=== PATIENT | female | born 1975 | race Caucasian/White ===

== ENCOUNTER 2016-11-11 20:59 | Inpatient (IN) ==
--- NOTE | 2016-11-11 21:06 | OB/GYN History & Physical ---
Date of Encounter: 11/12/16 Time of Encounter: 21:06 Assessment and Plan (1) 35 weeks gestation of Current visit: Yes Status: Acute Pt received appropriate care with Dr. Zheng Positive Nitrazine test x2 performed by RN. Cervical exam: 1-2 cm and thick, per RN Anticipate vaginal delivery Plan for cytotec/pagan when deemed appropriate Epidural if requested. Will notify nursery Plan for Rhogam, per protocol Discuss with ZEYAD Hernandez (2) GBS screening not performed Current visit: Yes Status: Acute Pt presenting prior to 37 weeks gestation with SROM Plan for GBS prophylaxis per protocol (3) Non-stress test reactive on surveillance Current visit: Yes Status: Acute Baseline 135 bpm/ moderate/ +accels/-decels Contractions: Irritability (4) labor in third trimester Current visit: Yes Status: Acute Pt presented with SROM Nursery notified Qualifiers: labor delivery status: with delivery in third trimester Fetus number: single or unspecified fetus Qualified Code(s): O60.14X0 - labor third trimester with delivery third trimester, not applicable or unspecified (5) Advanced maternal age (AMA), 40 years or greater Current visit: Yes Status: Acute Pt declined chromosomal screening. History of Present Illness Chief complaint: Labor Evaluation HPI: Ms. Mason is a 40 year old female presenting at 35 weeks and 0 days for spontaneous rupture of membrane.Pt denies vaginal bleeding or contractions. Endorses active movement. She receives routine care with Dr. Zheng as an outpatient. Patient's has been complicated by gestational diabetes, controlled with glyburide and dietary modifications. Pt had anatomy U/ S indicating a choroid plexus cyst, with no follow up with MFM despite recommendation. ROS: Constitutional - Glucose levels WNL prior to admission today. No headache. No SOB, N/V. No chest pain. Labs: O NEG/ Rubella Immune/ Varicella Antibody POS/ HIV NR/ T Pallidum Neg Past Med Surg Social Fam HX - Family History Mother Adopted: No Living Status: Still Living Hx Family Cardiac Disorders: No Hx Family Respiratory Disorders: No Hx Family Cancer: No Hx Family GI Disorders: No Hx Family Endocrine Disorder: Yes (diabetic) Hx Family Musculoskeletal Disorders: No Hx Family Neuromuscular Disorders: No Hx Family Neurologic Disorders: No Hx Family HEENT Disorders: No Hx Family Autoimmune Disorders: No Hx Family Reproductive Disorders: No Hx Family Psychosocial Disorders: No Hx Family Medical Disorders: No Obstetrical History - Pregnancies : 6 Para: 5 Term: 5 : 0 Ab's: 0 Livin - History/Complications History/Complications: Previous pregnancies complicated with gestational diabetes Previous births were vaginal deliveries. No history of required vacuum or forceps-assisted delivery. No previous hemorrhages. Medications and Allergies Famotidine [Pepcid] 20 mg PO 11/11/16 [History] Famotidine [Pepcid] 40 mg PO QPM 11/11/16 [History] GlyBURIDE 11/11/16 [History] Tablet PO DAILY 11/11/16 [History] Allergies No Known Allergies Allergy (Verified 11/11/16 21:19) Review of System OB - Constitutional Constitutional ROS IM: as per HPI Exam - Constitutional Constitutional: well developed, well nourished, no acute distress - HEENT HEENT: EOMI, Normocephaly - Neck Neck exam: supple - Lungs Respiratory exam: CTAB (No accessory muscle use. No chest wawll tenderness.) - Cardiovascular Cardiovascular exam: RRR (No murmur. ) - Abdomen Abdomen: Present: gravid, non tender - Cervix Dilation: 1 (1-2 cm, performed by RN) Effacement: 0 Results Result Diagrams: 11/11/16 21:25 All other labs normal.
[2016-11-11] MEDS ORDERED: Metoclopramide 10 MG/2 ML VIAL IVP PRN (21:17)
[2016-11-11] MEDS ORDERED: Ondansetron 4 MG/2 ML VIAL IVP PRN (21:17)
[2016-11-11] MEDS ORDERED: Naloxone 0.4 MG/ML INJ IVP PRN (21:17)
[2016-11-11] MEDS ORDERED: Famotidine 20 MG/2 ML VIAL IVP PRN (21:17)
[2016-11-11] MEDS ORDERED: Penicillin G Potassium 5,000,000 UNIT in D5% in Water (Mini-Bag+) 100 ML IVPB ONE (21:20)
[2016-11-11] MEDS ORDERED: Ringers Solution, Lactated 1,000 ML IVC SCH (21:30)
[2016-11-11 21:34] LABS: Basophils % 0.3 %; Eosinophils # 0.1 K/mcL (0.0-0.6); Eosinophils % 0.8 %; Hematocrit 31.8 % (35.3-44.9); Hemoglobin 10.1 g/dL (11.5-15.4); Lymphocytes # 2.8 K/mcL (0.6-4.6); Lymphocytes % 26.8 %; Mean Corpuscular HGB Conc 31.8 g/dL (31.6-35.5); Mean Corpuscular Hemoglobin 26.4 pg (28.0-33.3); Mean Platelet Volume 10.7 fL (9.4-12.4); Monocytes # 0.8 K/mcL (0.0-1.3); Monocytes % 8.1 %; Neutrophils # 6.6 K/mcL (1.6-8.9); Platelet Count 227 K/mcL (140-400); Red Blood Count 3.83 M/mcL (3.82-4.97); Red Cell Distribution Width 14.2 % (11.5-14.5)
[2016-11-11] MEDS ORDERED: miSOPROStol 25 MCG TABLET PO ONE ×2 (22:15→22:45)
--- NOTE | 2016-11-11 23:41 | OB Labor Progress Note ---
Date of Encounter: 11/12/16 Time of Encounter: 23:39 Labor Progress Note - Subjective Subjective: Pt comfortable. Has no complaints. Requests use of peanut ball - Vital Signs Vital Signs: Vital Signs WNL - Cervix Cervix: Dilation: 2 cm Effacement: 70% Cephalic presentation noted on exam, feels like possible brow presentation Performed by OG HernandezN - Heart Tones Heart Tones: Category I - Point Roberts Point Roberts: Irritability - Interventions Interventions: Pt on cytotec, tolerating well - Plan Plan: Continue close monitoring for adequate contractions. Will consider Pitocin when appropriate. RN to perform SVE prior to pitocin, if concern for malpresentation including brow, RN to call MD for evaluation prior to starting pitocin
[2016-11-12] MEDS: Penicillin G Potassium 2,500,000 UNIT in D5% in Water 100 ML IVPB SCH ×3 (02:01→10:31)
[2016-11-12] MEDS ORDERED: Oxytocin 20 units/ LR 1000 mL 20 UNIT/1,000 ML BAG IVC SCH ×2 (03:00→16:59)
--- NOTE | 2016-11-12 05:54 | OB Labor Progress Note ---
Date of Encounter: 11/12/16 Time of Encounter: 05:50 Labor Progress Note - Subjective Subjective: patient doing well - Vital Signs Vital Signs: VSS - Cervix Cervix: 3/70-2 - Heart Tones Heart Tones: 125/mod tona/ +accels, no decels - Plan Plan: ok for epidural when desired, fingersticks every 2 hrs and every 1hr when in active labor, anticipate
[2016-11-12] MEDS ORDERED: Epidural Premix (fent/bupiv) 110 ML EP ONE (08:51)
[2016-11-12] MEDS ORDERED: Bupivacaine-MPF 0.25% 10 ML VIAL ONE (08:51)
[2016-11-12] MEDS ORDERED: *HR* FentaNYL (PF) 100 MCG/2 ML VIAL ONE (08:51)
--- NOTE | 2016-11-12 09:56 | Anesthesia Evaluation PreOp ---
Date of Encounter: 11/12/16 Time of Encounter: 09:04 - Past History Planned Operation: AYDE Cardiac History: Denies any Significant Hx Pulmonary History: Denies Any Significant HX NOVELTY MAKER History: Denies Any Significant HX Other Medical History: Denies Any Significant HX Anesthesia History: No Prior Anesthetic Complications (previous AYDE x 5--no complications; denies personal and family h/o GA complications) : Yes Test: Positive Alcohol Use: none Drug use: none Medications and Allergies Famotidine [Pepcid] 20 mg PO 11/11/16 [History] Famotidine [Pepcid] 40 mg PO QPM 11/11/16 [History] GlyBURIDE 11/11/16 [History] Tablet PO DAILY 11/11/16 [History] Allergies No Known Allergies Allergy (Verified 11/11/16 21:19) - Meds/Allergy Pre-op Review Medications Reviewed: Yes Allergies Reviewed: Yes Beta Blockers on Current Med List: No Anesthesia Results - Labs 11/11/16 21:25 Anesthesia Exam 114/78, HR 93, RR 22 Height: 1.65m Weight: 97kg NPO (# of Hours): >8hrs Pain Scale: 10 Pain Scale Used: Numeric (1 - 10) - HEENT Pupil (Motor): Pupils equal Mallampati: II Teeth: Normal Oral Opening: Greater than 3 - NOVELTY MAKER LOC: Oriented NOVELTY MAKER Motor: Normal RUE, Normal LUE, Normal RLE, Normal LLE, Normal Face NOVELTY MAKER Sensory: Normal: RUE, LUE, RLE, LLE, Face - Cardiac Rhythm: Regular Murmur: None - Pulmonary Breath Sounds: bilateral Clear Respiratory Effort: Symmetrical Anesthesia Assess/Plan ASA Score: 2 Modified Mohler Scale for Level of Consciousness: Anixous, agitated or restless Anesthetic Plan: Regional Autologous Blood: No Monitoring Plan: Standard Monitors Recovery Plan: Other
--- NOTE | 2016-11-12 10:00 | Anesthesia Procedures ---
Date of Encounter: 11/12/16 Time of Encounter: 09:57 Procedures: Anesthesia - Epidural/Spinal Patient ID/Chart reviewed: Yes Patient examined: Yes OB Eval: Gestational age: 35 weeks 1 day OB Eval: : 6 OB Eval: Hx Para: 5 OB Eval: Dilated at (cm): 4 OB Eval: Contractions: Non-stressed pattern Consent Obtained: Yes Supplemental Oxygen: None/Room Air Site Prep: Aseptic Technique, Sterile prep and drape, Povidone-Iodine 1% Patient position: upright Local Anesthetic: Lidocaine 1% Amount of Local Anesthetic used: 5 Touhy Needle Gauge: 18 Touhy Needle Depth (cm): 5 Catheter Depth at Skin (cm): 11 Test Dose (1.5% Lido + Epi): Volume given (mls): 5 Test Dose Result: Negative Loading Dose: 0.25% Marcaine (mls): 5 Loading Dose: Fentanyl (mcg): 100 Loading Dose Administered: Thru Catheter Infusion Med: 0.125% Bupivacaine w/ 2 mcg/ml Fentanyl Infusion Rate (mls/hr): 14 (w/ demand bolus of 4mL q20min PRN) Catheter Secured in Place: Tegaderm, Tape Interspace Used: L3-L4 Loss of Resistance (JEO): Yes Blood: No CSF: No Paresthesia: No Procedure: please see Luli CLINTON's electronic documentation for VS
[2016-11-12] MEDS ORDERED: *HR* FentaNYL (PF) 100 MCG/2 ML VIAL EP ONE (10:01)
[2016-11-12] MEDS ORDERED: Bupivacaine-MPF 0.25% 10 ML VIAL EP ONE (10:01)
[2016-11-12] MEDS ORDERED: Epidural Premix (fent/bupiv) 110 ML EP SCH (10:15)
--- NOTE | 2016-11-12 11:54 | OB Labor Progress Note ---
Date of Encounter: 11/12/16 Time of Encounter: 11:52 Labor Progress Note - Subjective Subjective: Pt resting comfortable in with epidural - Cervix Cervix: 4cm per RN - Heart Tones Heart Tones: 135/moderate/+accels/-decels - Braymer Braymer: 3-7 - Plan Plan: Continue Pitocin per policy PCN for GBS Anticipate
[2016-11-12] MEDS: EPHEDrine 50 MG/ML VIAL ONE ×2 (13:21→13:31)
--- NOTE | 2016-11-12 15:40 | OB/GYN Procedure Note ---
Delivery - Delivery Date: 11/12/16 Provider: Laury Valle Intrapartum events: none Delivery induction: misoprostol Delivery augmentation: pitocin Delivery monitor: external FHT, external uterine, internal FHT, internal uterine Anesthesia: epidural Estimated Blood Loss: 400 - (s) A Delivery Date: 11/12/16 Delivery Time: 11:45 Presentation: vertex Position: OA Route of delivery: Gender: Male Viability: Viable at 1 minute: 7 at 5 mins: 8 Shoulder Dystocia: not encountered Specimens collected: cord blood Placenta: spontaneous Cord: 3 umbilical vessels - Repair Episiotomy: none Laceration Description: None - Complications Delivery complications: none Delivery comments: Pt progressed to complete. Single push to of liveborn male. Vertex delivered OA, shoulders easily followed, no nuchal cord or shoulder dystocia encountered. Vigorous infant placed on maternal abdomen. APGARS 7,8. Delayed cord clamping, Placenta delivered spontaneously(severo intact on inspection). Pitocin started per policy, Fundus initially firm, but then large amount of bleeding noted massaged to firm, with vaginal removal of large amount of clots. Methergine given IM, fundus now firm at U-2. EBL 400. Perineum intact - Disposition Mom disposition: stable in LDR [place] disposition: stable in LDR
[2016-11-12] MEDS ORDERED: Rho Immune Globulin 1,500 UNIT SYRINGE IM PRN (16:59)
[2016-11-12] MEDS ORDERED: Acetaminophen 325 MG TABLET PO PRN (16:59)
[2016-11-12] MEDS ORDERED: Benzocaine/Menthol 56 GM AEROSOL SPRAY TP PRN (16:59)
[2016-11-12] MEDS ORDERED: Ibuprofen 600 MG TABLET PO PRN (16:59)
[2016-11-12] MEDS ORDERED: Lanolin 28 GM TUBE TP PRN (16:59)
--- NOTE | 2016-11-12 21:10 | Discharge Summary ---
Date of Encounter: 11/12/16 Time of Encounter: 21:07 - Discharge Diagnosis (1) Vaginal delivery Priority: Primary Status: Acute Comments: Pt with minimal post bleeding. Pt states pain in minimal. [place] is being sent to [facility], intubated. Pt desires discharge. - Discharge Medications Prescriptions: Ibuprofen [Motrin] 600 mg PO Q6HR PRN #60 tab PRN Reason: Cramping Docusate [Colace] 100 mg PO BID #60 Ferrous Sulfate 325 mg PO DAILY #60 tab Home Medications: Famotidine [Pepcid] 20 mg PO 11/11/16 [History] Famotidine [Pepcid] 40 mg PO QPM 11/11/16 [History] Tablet PO DAILY 11/11/16 [History] Acetaminophen [Tylenol] 650 mg PO Q6HR PRN tab 11/12/16 [Rx] Benzocaine/Menthol [place] [Dermoplast [place]] 1 appl TP QID PRN aerosol 11/12/16 [Rx] Docusate [Colace] 100 mg PO BID #60 11/12/16 [Rx] Ferrous Sulfate 325 mg PO DAILY #60 tab 11/12/16 [Rx] Ibuprofen [Motrin] 600 mg PO Q6HR PRN #60 tab 11/12/16 [Rx] Lanolin 1 appl TP QID PRN 11/12/16 [Rx] Vit/FA 1 each PO DAILY tab 11/12/16 [Rx] Rho Immune Globulin [HyperRHO S/D] 1,500 unit IM AD PRN 11/12/16 [Rx] Allergies/Adverse Reactions: Allergies No Known Allergies Allergy (Verified 11/11/16 21:19) Data Procedures and tests throughout hospitalization: Laboratory Tests 11/11/16 11/11/16 11/12/16 21:25 22:30 02:54 WBC 10.4 RBC 3.83 Hgb 10.1 L Hct 31.8 L MCV 83.0 MCH 26.4 L MCHC 31.8 RDW 14.2 Plt Count 227 MPV 10.7 Immature Gran % 1.0 Seg Neutrophils % 63.0 Lymphocytes % 26.8 Monocytes % 8.1 Eosinophils % 0.8 Basophils % 0.3 Neutrophils # 6.6 Lymphocytes # 2.8 Monocytes # 0.8 Eosinophils # 0.1 Basophils # 0.0 POC Glucose 88 104 H 11/12/16 11/12/16 05:37 11:17 WBC RBC Hgb Hct MCV MCH MCHC RDW Plt Count MPV Immature Gran % Seg Neutrophils % Lymphocytes % Monocytes % Eosinophils % Basophils % Neutrophils # Lymphocytes # Monocytes # Eosinophils # Basophils # POC Glucose 88 116 H Labs on day of discharge: Labs from last 24 hours 11/12/16 11/12/16 11/12/16 11:17 05:37 02:54 WBC RBC Hgb Hct MCV MCH MCHC RDW Plt Count MPV Immature Gran % Seg Neutrophils % Lymphocytes % Monocytes % Eosinophils % Basophils % Neutrophils # Lymphocytes # Monocytes # Eosinophils # Basophils # POC Glucose 116 H 88 104 H 11/11/16 11/11/16 22:30 21:25 WBC 10.4 RBC 3.83 Hgb 10.1 L Hct 31.8 L MCV 83.0 MCH 26.4 L MCHC 31.8 RDW 14.2 Plt Count 227 MPV 10.7 Immature Gran % 1.0 Seg Neutrophils % 63.0 Lymphocytes % 26.8 Monocytes % 8.1 Eosinophils % 0.8 Basophils % 0.3 Neutrophils # 6.6 Lymphocytes # 2.8 Monocytes # 0.8 Eosinophils # 0.1 Basophils # 0.0 POC Glucose 88 Date of admission: 11/11/16 20:59 Primary care physician: PCP NO Consults: 11/12/16 16:59 Consult to [facility] [CONS] Routine Comment: Vaginal delivery, consult needed Discharging clinician: Laury Valle Anticipated date of discharge: 11/12/16 - Patient Status Disposition: Home, Self-Care Condition: Good Functional capacity at discharge: independent ambulation Overall status at discharge: patient is back to baseline - Discharge Instructions Follow Up With: DELFIN,PCP [Primary Care Provider] - Laury Valle CNM [Advanced Practice Nurse] - - Diet and Activity Activity: resume usual activities as tolerated Diet: regular diet Hospital Course Reason for admission: IUP - , rupture of membranes Delivery: Episiotomy: none Laceration: none Other procedures: none complications: none Discharge diagnosis: delivery [place] baby: male Hospital course: Delivery - Delivery Date: 11/12/16 Provider: Laury Valle Intrapartum events: none Delivery induction: misoprostol Delivery augmentation: pitocin Delivery monitor: external FHT, external uterine, internal FHT, internal uterine Anesthesia: epidural Estimated Blood Loss: 400 - Infant (s) Infant A Delivery Date: 11/12/16 Infant Delivery Time: 14:45 Presentation: vertex Position: OA Route of delivery: Gender: Male Viability: Viable at 1 minute: 7 at 5 mins: 8 Shoulder Dystocia: not encountered Specimens collected: cord blood Placenta: spontaneous Cord: 3 umbilical vessels - Repair Episiotomy: none Laceration Description: None - Complications Delivery complications: none Delivery comments: Pt progressed to complete. Single push to of liveborn male. Vertex delivered OA, shoulders easily followed, no nuchal cord or shoulder dystocia encountered. Vigorous infant placed on maternal abdomen. APGARS 7,8. Delayed cord clamping, Placenta delivered spontaneously(severo intact on inspection). Pitocin started per policy, Fundus initially firm, but then large amount of bleeding noted massaged to firm, with vaginal removal of large amount of clots. Methergine given IM, fundus now firm at U-2. EBL 400. Perineum intact - Disposition Mom disposition: stable in . Pt is 6 hours post delivery and appropriate for early discharge. . Time Attestation: Total time spent providing and/or coordinating discharge services: Time Spent: Less than 30 minutes Exam - Constitutional Vitals: Temp Pulse Resp BP Pulse Ox 98.4 F 96 16 122/78 100 11/12/16 19:43 11/12/16 19:43 11/12/16 19:43 11/12/16 19:43 11/12/16 19:43 General appearance IM: A&O X 3, pleasant, no acute distress - Respiratory Respiratory exam: Present: CTAB - Cardiovascular Cardiovascular exam IM: Present: RRR - GI/Abdominal GI/Abdominal exam IM: soft - Uterine Tone: Firm Uterus Position: At Umbilicus, Midline - Extremities Exam Extremities exam IM: Present: normal capillary refill, normal inspection - Neurological Exam Neurological exam: normal gait, oriented X3, reflexes normal - Psychiatric Additional comments: reports good mood.
[2016-11-12 21:44] VITALS: BP 118/76
[2016-11-13] MEDS ORDERED: Methylergonovine 0.2 MG/ML AMPUL IM ONE (01:29)
[2016-11-13] MEDS ORDERED: Prenatal Vit/FA 1 EACH TABLET PO SCH (09:00)
== END 2016-11-13 01:30 | disposition home or self-care (01) | DRG 774 ==
LOC: 1NENULAB 20:59 → 1NENUOBS 11-12 17:55
PROVIDERS: ADMIT Student in an Organized Health Care Education/Training Program; ATTEND Student in an Organized Health Care Education/Training Program